=== PATIENT | male | born 1935 | race Two or more races ===

== ENCOUNTER 2019-01-07 07:03 | Emergency (ER) | payer MEDICARE, MEDICAID ==
[2019-01-07] MEDS: METOPROLOL 50 MG TAB PO (07:34)
[2019-01-07] MEDS: PHENYLephrine 1% 15 ML NAS SPRAY NASAL (07:34)
== END 2019-01-07 09:12 | disposition home or self-care (01) ==
LOC: E/R 07:03
DX: R04.0 Epistaxis (principal); F17.210 Nicotine dependence, cigarettes, uncomplicated
CPT/HCPCS: 30901; 99283-25

== ENCOUNTER 2019-01-09 12:16 | Emergency (ER) | payer MEDICARE, OTHER, MEDICAID | END 2019-01-09 15:31 | disposition home or self-care (01) | LOC: E/R 12:16 | DX: R04.0 Epistaxis (principal) | CPT/HCPCS: 99282 ==

== ENCOUNTER 2019-04-16 12:46 | Emergency (ER) | payer MEDICARE, OTHER ==
[2019-04-16] MEDS: TRANEXAMIC ACID 1GM/100ML(PMX) 100 ML IV (13:19)
[2019-04-16] MEDS: SILVER NITRATE SWAB TOP (13:35)
== END 2019-04-16 13:38 | disposition home or self-care (01) ==
LOC: E/R 12:46
DX: R04.0 Epistaxis (principal)
CPT/HCPCS: 30901; 99283-25